=== PATIENT | female | born 1995 | race Caucasian/White ===

== ENCOUNTER 2019-03-12 08:00 | Observation (INO) ==
--- NOTE | 2019-03-12 09:21 | Emergency Department Note ---
Disposition Clinical Impression: Choledocholithiasis Disposition: Admitted As Inpatient Condition: Good Time of Disposition: 11:30 Abdominal Pain HPI - General Chief Complaint: ED Abdominal Pain Stated Complaint: "gallbladder" Time Seen by Provider: 03/12/19 09:02 Source: patient Mode of arrival: ambulatory Limitations: no limitations Nursing Notes Reviewed: Yes Vital Signs Reviewed: Yes - History of Present Illness Pt Subjective Complaint: abdominal pain Onset (ago): hour(s) Consistency: Worsening Location: epigastric Pain Scale: 8 Quality: stabbing, burning Radiation: chest, other (Right arm) Improves with: nothing Worsens with: eating, movement Context: history of similar episodes Associated symptoms: Reports: nausea, vomiting, diarrhea, chills Treatments prior to arrival: none - Related Data LMP (females 10-50): other (Patient estimates about 6 months) Home Medications Medication Instructions Recorded Confirmed No Known Home Drugs 03/12/19 03/12/19 Allergies Allergy/AdvReac Type Severity Reaction Status Date / Time No Known Allergies Allergy Verified 03/12/19 08:06 Review of Systems: As Per HPI Constitutional: Reports: chills Gastrointestinal: Reports: nausea, vomiting, diarrhea Genitourinary: Reports: as per HPI Abdominal Pain PMH - Past Medical History Medical history: Reports: no medical history Reports: recurrent abdominal pain Female Surgical History: Reports: no surgical history MANAGER CRITICAL CARE history: Reports: no MANAGER CRITICAL CARE history Psychiatric history: Reports: no psych history - Social History Smoking status: Current every day smoker Alcohol use: Reports: none Drug use: Reports: none Physical Exam - General Limitations: no limitations General appearance: alert, in no apparent distress - Head Head exam: normal inspection - Neck Neck exam: Present: normal inspection - Chest Chest inspection: Present: normal inspection - Respiratory Respiratory exam: Present: normal lung sounds bilaterally - Cardiovascular Cardiovascular exam: Present: regular rate, normal rhythm - Abdominal Exam Abdominal exam: Present: soft, tenderness, Valle's sign Abdominal tenderness: Present: RUQ, moderate Course Course Narrative: Ms. Belle is a 24 yo woman who came to the ED for evaluation of "gallbladder pain." She states the pain is like previous episodes, but the pain is worse (8/10). It radiates from the epigastrium to her chest and down her right arm. The pain woke her from sleep around 0230 this morning and has been accompanied by nausea, vomiting and diarrhea. She did not take any medications to relieve it. She denies history of heartburn. Eating foods such as pizza makes the pain recur. She said previous imaging has shown gallstones, but she has not yet followed up with a surgeon. No recent travel, long periods without moving, history of blood clots, sick contacts or other circumstances suggesting pulmonary embolism. Patient does smoke. She stopped getting the Depo-Provera shot in September and does not think she has had a menstrual period since. There is a possibility she could be , per patient. On PE, she has moderate tenderness to her RUQ and positive Valle's sign. Rest of exam WNL. Vital Signs Temperature 98 F 03/12/19 08:07 Pulse Rate 59 03/12/19 08:07 Respiratory Rate 20 03/12/19 08:07 Blood Pressure 132/71 03/12/19 08:07 O2 Sat by Pulse Oximetry 94 03/12/19 08:07 Temperature 98 F 03/12/19 08:07 Pulse Rate 59 03/12/19 08:07 Respiratory Rate 20 03/12/19 08:07 Blood Pressure 132/71 03/12/19 08:07 O2 Sat by Pulse Oximetry 94 03/12/19 08:07 Oxygen Delivery Oxygen Delivery Room Air Abdominal Pain - MDM Narrative Medical decision making narrative: EKG normal, ruling out FL. test negative. LFTs significant only for elevated AST at 98. WBC slightly elevated 12.5 with left shift, consistent with inflammation. UA negative. US of gallbladder and liver consistent with choledocholelithiasis. CBD dilated to 7.3mm with echogenic focus within duct. Patient received GI cocktail, which did not relieve symptoms; Zofran and 1 mg of IV dilaudid which did help. Surgery consulted and admitted patient to service. IV NS and Unasyn IV (1,000 mg, one dose) ordered per surgery. - Differential Diagnosis Differential Diagnosis: Likely: abdominal pain non-specific, acute appendicitis, gastroenteritis, other (Cholecystitis) - Medical Records Medical records reviewed: Yes I reviewed the patient's medical records. - Lab Data Lab results reviewed: Yes I reviewed the patient's lab results. Result diagrams: 03/12/19 09:31 03/12/19 09:31 Lab Results 03/12/19 03/12/19 03/12/19 Range/Units 09:20 09:31 09:31 WBC 12.5 H (4.3-11.1) K/mcL RBC 4.87 (3.82-4.97) M/mcL Hgb 14.1 (11.5-15.4) g/dL Hct 42.6 (35.3-44.9) % MCV 87.5 (83.0-100.0) fL MCH 29.0 (28.0-33.3) pg MCHC 33.1 (31.6-35.5) g/dL RDW 13.1 (11.5-14.5) % Plt Count 163 (140-400) K/mcL MPV 12.7 H (9.4-12.4) fL Immature Gran % 0.3 (0-4) % Seg Neutrophils % 83.2 % Lymphocytes % 10.8 % Monocytes % 5.1 % Eosinophils % 0.4 % Basophils % 0.2 % Neutrophils # 10.4 H (1.6-8.9) K/mcL Lymphocytes # 1.4 (0.6-4.6) K/mcL Monocytes # 0.6 (0.0-1.3) K/mcL Eosinophils # 0.1 (0.0-0.6) K/mcL Basophils # 0.0 (0.0-0.2) K/mcL Sodium 138 (136-145) mEq/L Potassium 4.2 (3.5-5.1) mEq/L Chloride 104 (98-107) mEq/L Carbon Dioxide 26 (23-29) mEq/L BUN 15 (6-20) mg/dL Creatinine 0.85 (0.60-1.20) mg/dL Est GFR ( Amer) > 60 (> 60) Est GFR (Non-Af Amer) > 60 (> 60) BUN/Creatinine Ratio 18 (6-26) Glucose 110 H (70-105) mg/dL Calculated Osmolality 287 (280-300) Calcium 9.3 (8.6-10.3) mg/dL Total Bilirubin 0.5 (0.3-1.0) mg/dL Direct Bilirubin 0.2 (0.0-0.2) mg/dL Indirect Bilirubin 0.3 (0.0-1.2) mg/dL AST 98 H (13-39) Units/L ALT 50 (7-52) Units/L Alkaline Phosphatase 61 (34-104) Units/L Troponin I < 0.03 (< 0.04) ng/mL Serum Total Protein 6.7 (6.4-8.9) g/dL Albumin 3.9 (3.5-5.7) g/dL Globulin 2.8 (2.4-3.5) g/dL Albumin/Globulin Ratio 1.4 (1.1-2.2) Serum , Qual (Negative) Urine Color Yellow (Yellow) Urine Clarity Clear (Clear) Urine pH 6.0 (5.0-8.0) pH Units Ur Specific [place] 1.028 H (1.010-1.025) Urine Protein Negative (Neg-Trace) mg/dL Urine Glucose (UA) Normal (Normal) mg/dL Urine Ketones Negative (Negative) mg/dL Urine Blood Negative (Negative) Urine Nitrite Negative (Negative) Urine Bilirubin Negative (Negative) Urine Urobilinogen Normal (Normal) mg/dL Ur Leukocyte Esterase Negative (Negative) Urine Microscopic RBC 0-3 (0-3) per hpf Ur Squamous Epith Cells Many H (None-Few) per lpf Urine Bacteria None Seen (None-Few) per hpf Hyaline Casts None Seen (None-Few) per lpf Ur Culture Indicated? NO (NO) 03/12/19 Range/Units 09:31 WBC (4.3-11.1) K/mcL RBC (3.82-4.97) M/mcL Hgb (11.5-15.4) g/dL Hct (35.3-44.9) % MCV (83.0-100.0) fL MCH (28.0-33.3) pg MCHC (31.6-35.5) g/dL RDW (11.5-14.5) % Plt Count (140-400) K/mcL MPV (9.4-12.4) fL Immature Gran % (0-4) % Seg Neutrophils % % Lymphocytes % % Monocytes % % Eosinophils % % Basophils % % Neutrophils # (1.6-8.9) K/mcL Lymphocytes # (0.6-4.6) K/mcL Monocytes # (0.0-1.3) K/mcL Eosinophils # (0.0-0.6) K/mcL Basophils # (0.0-0.2) K/mcL Sodium (136-145) mEq/L Potassium (3.5-5.1) mEq/L Chloride (98-107) mEq/L Carbon Dioxide (23-29) mEq/L BUN (6-20) mg/dL Creatinine (0.60-1.20) mg/dL Est GFR ( Amer) (> 60) Est GFR (Non-Af Amer) (> 60) BUN/Creatinine Ratio (6-26) Glucose (70-105) mg/dL Calculated Osmolality (280-300) Calcium (8.6-10.3) mg/dL Total Bilirubin (0.3-1.0) mg/dL Direct Bilirubin (0.0-0.2) mg/dL Indirect Bilirubin (0.0-1.2) mg/dL AST (13-39) Units/L ALT (7-52) Units/L Alkaline Phosphatase (34-104) Units/L Troponin I (< 0.04) ng/mL Serum Total Protein (6.4-8.9) g/dL Albumin (3.5-5.7) g/dL Globulin (2.4-3.5) g/dL Albumin/Globulin Ratio (1.1-2.2) Serum , Qual Negative (Negative) Urine Color (Yellow) Urine Clarity (Clear) Urine pH (5.0-8.0) pH Units Ur Specific [place] (1.010-1.025) Urine Protein (Neg-Trace) mg/dL Urine Glucose (UA) (Normal) mg/dL Urine Ketones (Negative) mg/dL Urine Blood (Negative) Urine Nitrite (Negative) Urine Bilirubin (Negative) Urine Urobilinogen (Normal) mg/dL Ur Leukocyte Esterase (Negative) Urine Microscopic RBC (0-3) per hpf Ur Squamous Epith Cells (None-Few) per lpf Urine Bacteria (None-Few) per hpf Hyaline Casts (None-Few) per lpf Ur Culture Indicated? (NO) - Radiology Data Radiology results reviewed: Yes I reviewed the patient's radiology results. Gallbladder Ultrasound 03/12/19 10:09 IMPRESSION: 1. Cholelithiasis with dilated common bile duct likely secondary to choledocholithiasis. D/ / Higinio Jorge MD / Higinio Jorge MD Interpreting Provider: Higinio Jorge MD - EKG Data EKG attestation: Yes I reviewed and interpreted this EKG. Interpretation: normal EKG Attestation Statement - Attestation Attestation: Dr. Collier note: Pt was seen in conjunction with emergency medicine Resident Dr Arely Shukla; Please see her charting for complete documentation. Assessment [id number] time with the patient and I agree with patient's treatment and disposition. Midepigastric and right upper quadrant pain since 2 AM and persistent with naus ea no vomiting or diarrhea. History of known gallstones. Patient's onset and disposition of pain reported by patient. Same as her prior gallbladder issues. No fever. No lower bowel pain. No clear signs of obstruction or pancreatitis by blood work. Common bile duct stones suspected on imaging with a dilated common bile duct an opacity noted. Patient was accepted to the general surgeon Dr. Massiel Jackson. Stable with pain controlled prior to admission. No fever.
[2019-03-12 09:43] LABS: Bilirubin,Urine Negative (Negative); Blood,Urine Negative (Negative); Color,Urine Yellow (Yellow); Glucose,Urine (UA) Normal (Normal); Ketones,Urine Negative (Negative); Leukocyte Esterase,Urine Negative (Negative); Nitrite,Urine Negative (Negative); Protein,Urine Negative (Neg-Trace); Specific Gravity,Urine 1.028 (1.010-1.025); Urobilinogen,Urine Normal (Normal)
[2019-03-12 09:47] LABS: Bacteria,Urine None Seen per hpf (None-Few); Hyaline Casts,Urine None Seen per lpf (None-Few); RBC,Urine 0-3 per hpf (0-3); Squamous Epithelial Cell,Urine Many per lpf (None-Few)
[2019-03-12 09:49] LABS: Basophils % 0.2 %; Eosinophils # 0.1 K/mcL (0.0-0.6); Eosinophils % 0.4 %; Hematocrit 42.6 % (35.3-44.9); Hemoglobin 14.1 g/dL (11.5-15.4); Immature Granulocytes % 0.3 % (0-4); Lymphocytes # 1.4 K/mcL (0.6-4.6); Lymphocytes % 10.8 %; Mean Corpuscular HGB Conc 33.1 g/dL (31.6-35.5); Mean Corpuscular Volume 87.5 fL (83.0-100.0); Mean Platelet Volume 12.7 fL (9.4-12.4); Monocytes # 0.6 K/mcL (0.0-1.3); Monocytes % 5.1 %; Neutrophils # 10.4 K/mcL (1.6-8.9); Platelet Count 163 K/mcL (140-400); Red Blood Count 4.87 M/mcL (3.82-4.97); Red Cell Distribution Width 13.1 % (11.5-14.5); Segmented Neutrophils % 83.2 %; White Blood Count 12.5 K/mcL (4.3-11.1)
[2019-03-12 09:50] LABS: Clarity,Urine Clear (Clear)
[2019-03-12] MEDS ORDERED: GI Cocktail 40 ML EACH PO ONE (10:03)
[2019-03-12 10:05] LABS: Alanine Aminotransferase 50 Units/L (7-52); Albumin 3.9 g/dL (3.5-5.7); Albumin/Globulin Ratio 1.4 (1.1-2.2); Alkaline Phosphatase 61 Units/L (34-104); Aspartate Amino Transferase 98 Units/L (13-39); BUN/Creatinine Ratio 18 (6-26); Bilirubin,Direct 0.2 mg/dL (0.0-0.2); Bilirubin,Indirect 0.3 mg/dL (0.0-1.2); Bilirubin,Total 0.5 mg/dL (0.3-1.0); Blood Urea Nitrogen 15 mg/dL (6-20); Calcium 9.3 mg/dL (8.6-10.3); Carbon Dioxide 26 mEq/L (23-29); Chloride 104 mEq/L (98-107); Globulin 2.8 g/dL (2.4-3.5); Glucose 110 mg/dL (70-105); Osmolality,Calculated 287 (280-300); Potassium 4.2 mEq/L (3.5-5.1); Sodium 138 mEq/L (136-145); Total Protein 6.7 g/dL (6.4-8.9); Troponin I < 0.03 ng/mL (< 0.04); eGFR For African Americans > 60 (> 60); eGFR For Non-African Americans > 60 (> 60)
[2019-03-12] MEDS ORDERED: Ondansetron Oral Soln 2 MG/2.5 ML ORAL.SYG PO ONE (10:07)
[2019-03-12] MEDS ORDERED: *HR* HYDROmorphone (PF) 1 MG/ML SYRINGE IVP ONE (10:15)
[2019-03-12] MEDS ORDERED: Ampicillin/Sulbactam 1,500 MG in 0.9 % Sodium Chloride Mini Bag 100 ML IVPB ONE (11:37)
[2019-03-12] MEDS: 0.9 % Sodium Chloride 1,000 ML IVC SCH ×4 (11:54→23:53)
[2019-03-12] MEDS ORDERED: Ondansetron 4 MG/2 ML VIAL IVP PRN ×2 (15:49→23:12)
--- NOTE | 2019-03-12 15:59 | Acute Care Surgery H&P ---
Date of Encounter: 03/12/19 Time of Encounter: 14:00 Assessment and Plan (1) Symptomatic cholelithiasis Current Visit: Yes Status: Acute The assessment and plan as outlined above was discussed with the patient and/or family members who expressed understanding and agreement. All questions were answered. Pt diagnosis of symptomatic cholelithiasis with dilated CBD is discussed. Laparoscopic Cholecystectomy with IOC is recommended. Procedure for the surgery, risks and benefits are discussed in detail. Possible known complications for Laparoscopic Cholecystectomy are bleeding, infection, bile duct injury, bile leak, small intestine or stomach injury, stroke, DVT/PE, AL or . Pt understands these risks, which in this case are . Pt wishes to proceed with surgery as soon as possible. Informed consent is obtained. Pt condition is s table. Surgery is scheduled. (2) Dilated cbd, acquired Current Visit: Yes Status: Acute Bilirubin levels are wnl History of Present Illness Chief complaint: RUQ abd pain HPI: This 24 y/o female pt presents to [facility] c/o severe RUQ abdominal pain. Pt reports pain is severe and unrelenting. Pt c/o epigastric pain as well. Pt reports pain radiates into back. Pt reports intractable nausea and vomiting. Pt denies changes in BM. Pt denies CP or SOB. Pt denies fever. Past Med Surg Social Fam HX - Past Medical History Medical history: no medical history Additional medical history: HPV Psychiatric history: no psych history - Social History Smoking Status: Current every day smoker Smokeless Tobacco Status: No Alcohol use: none Drug use: none Medications and Allergies No Known Home Drugs 03/12/19 [History] Allergy/AdvReac Type Severity Reaction Status Date / Time No Known Allergies Allergy Verified 03/12/19 08:06 Review of Systems All systems PM: The remainder of the systems were reviewed and are negative - Constitutional as per HPI, no anorexia, no chills, no fatigue, no fever(s), no night sweats, no weight loss - EENT Nose, mouth and throat: no dizziness, no dry mouth, no nasal congestion, no nasal discharge, no sinus pain, no sinus pressure, no sore throat - Cardiovascular no chest pain, no diaphoresis, no dyspnea, no edema - Respiratory no cough, no dyspnea, no wheezing - Gastrointestinal abdominal pain, belching, bloating, constipation, nausea, vomiting, no diarrhea - Genitourinary Genitourinary: no dysuria, no flank pain, no urinary frequency - Musculoskeletal back pain, no joint swelling, no limited range of motion, no neck pain - Integumentary no dry skin, no pruritus, no rash, no wounds, no jaundice - Neurological no confusion, no dizziness, no focal weakness, no headache(s), no weakness - Psychiatric no anxiety, no depression - Endocrine no fatigue - Hematologic/Lymphatic no easy bleeding, no easy bruising General Surgery Exam Initial Vital Signs Temp Pulse Resp BP Pulse Ox 98 F 59 20 132/71 94 03/12/19 08:07 03/12/19 08:07 03/12/19 08:07 03/12/19 08:07 03/12/19 08:07 - General physical appearance well developed, well nourished, no distress, moderate pain. negative: jaundice - Eyes PERRL, normal ocular movement. negative: icteric - ENT no congestion, dry mucosa. negative: nasal discharge - Neck no masses, trachea midline, no lymphadectomy, no venous distension - Respiratory normal respiratory effort, clear to auscultation - Cardiovascular Cardiovascular exam: Present: RRR. Absent: murmurs, JVD - Abdomen Abdomen general surgery: Present: bowel sounds present, soft, distended, tender Abdominal Tenderness: Present: RUQ - Genitourinary Present: normal external genitalia - Integumentary Integumentary general surgery: Present: warm and dry - Neurologic Present: CN 2-12 grossly intact, normal coordination - Musculoskeletal Present: normal gait, normal posture - Psychiatric Psychiatric general surgery: Present: A&Ox3, appropriate Results - Labs 03/12/19 09:31 03/12/19 09:31 Abnormal lab results WBC 12.5 K/mcL (4.3-11.1) H 03/12/19 09:31 MPV 12.7 fL (9.4-12.4) H 03/12/19 09:31 Neutrophils # 10.4 K/mcL (1.6-8.9) H 03/12/19 09:31 Glucose 110 mg/dL (70-105) H 03/12/19 09:31 AST 98 Units/L (13-39) H 03/12/19 09:31 Ur Specific [place] 1.028 (1.010-1.025) H 03/12/19 09:20 Ur Squamous Epith Cells Many per lpf (None-Few) H 03/12/19 09:20 Diabetes panel 03/12/19 Range/Units 09:31 Sodium 138 (136-145) mEq/L Potassium 4.2 (3.5-5.1) mEq/L Chloride 104 (98-107) mEq/L Carbon Dioxide 26 (23-29) mEq/L BUN 15 (6-20) mg/dL Creatinine 0.85 (0.60-1.20) mg/dL Glucose 110 H (70-105) mg/dL Calcium 9.3 (8.6-10.3) mg/dL AST 98 H (13-39) Units/L ALT 50 (7-52) Units/L Alkaline Phosphatase 61 (34-104) Units/L Albumin 3.9 (3.5-5.7) g/dL Calcium panel 03/12/19 Range/Units 09:31 Calcium 9.3 (8.6-10.3) mg/dL Albumin 3.9 (3.5-5.7) g/dL Pituitary panel 03/12/19 Range/Units 09:31 Sodium 138 (136-145) mEq/L Potassium 4.2 (3.5-5.1) mEq/L Chloride 104 (98-107) mEq/L Carbon Dioxide 26 (23-29) mEq/L BUN 15 (6-20) mg/dL Creatinine 0.85 (0.60-1.20) mg/dL Glucose 110 H (70-105) mg/dL Calcium 9.3 (8.6-10.3) mg/dL Adrenal panel 03/12/19 Range/Units 09:31 Sodium 138 (136-145) mEq/L Potassium 4.2 (3.5-5.1) mEq/L Chloride 104 (98-107) mEq/L Carbon Dioxide 26 (23-29) mEq/L BUN 15 (6-20) mg/dL Creatinine 0.85 (0.60-1.20) mg/dL Glucose 110 H (70-105) mg/dL Calcium 9.3 (8.6-10.3) mg/dL Total Bilirubin 0.5 (0.3-1.0) mg/dL AST 98 H (13-39) Units/L ALT 50 (7-52) Units/L Alkaline Phosphatase 61 (34-104) Units/L Albumin 3.9 (3.5-5.7) g/dL All other labs normal. - Imaging US - abdomen: image reviewed (+cholelithiasis with dilated CBD) - VTE Reasons for not Prescribing Prophylaxis: Treatment not Indicated - Low risk for VTE
[2019-03-12] MEDS ORDERED: 0.9 % Sodium Chloride 1,000 ML IVC SCH (16:00)
[2019-03-12] MEDS ORDERED: Ampicillin/Sulbactam 3,000 MG in 0.9 % Sodium Chloride Mini Bag 100 ML IVPB SCH (18:00)
--- NOTE | 2019-03-12 19:09 | Anesthesia Evaluation PreOp ---
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 HX Other Medical History: Denies Any Significant HX, Other (intractable N/V associated w/RUQ pain) Anesthesia History: Past Anesthesia (NO prior GA), MH (NO FamHx of MH) : No Test: Negative Alcohol Use: none Drug use: marijuana Medications and Allergies No Known Home Drugs 03/12/19 [History] Allergy/AdvReac Type Severity Reaction Status Date / Time No Known Allergies Allergy Verified 03/12/19 08:06 - Meds/Allergy Pre-op Review Medications Reviewed: Yes Allergies Reviewed: Yes Beta Blockers on Current Med List: No Anesthesia Results - Labs 03/12/19 09:31 03/12/19 09:31 Impressions Gallbladder Ultrasound 03/12/19 10:09 IMPRESSION: 1. Cholelithiasis with dilated common bile duct likely secondary to choledocholithiasis. D/ / Higinio Jorge MD / Higinio Jorge MD Interpreting Provider: Higinio Jorge MD Laboratory Tests 03/12/19 09:31 Serum , Qual Negative - Imaging EKG: report reviewed (80bpm - Sinus rhythm Electronically Signed On 11-30-2018 19:06:54 EDT by Luca Rogers) Anesthesia Exam Vital Signs Temp Pulse Resp BP Pulse Ox 03/12/19 16:19 98.1 F 14 14 109/63 96 03/12/19 15:53 51 16 126/71 97 03/12/19 12:29 67 16 113/57 97 03/12/19 08:07 98 F 59 20 132/71 94 Intake and Output 03/12/19 03/12/19 03/12/19 07:59 15:59 23:59 Intake Total 200 / 200 Balance 200 / 200 Intake: IV Fluids 200 / 200 Unasyn 1,500 MG In 0.9 % Sodium 100 / 100 Chloride (Mini-Bag +) 100 ML @ 200 mls/hr IVPB ONCE ONE Rx#: [id number] Unasyn 3,000 MG In 0.9 % Sodium 100 / 100 Chloride (Mini-Bag +) 100 ML @ 200 mls/hr IVPB Q6HR [facility] Rx#: [id number] Oral 0 / 0 Other: Weight 113.398 kg Patient Weight 03/12/19 23:59 Weight 113.398 kg Height: 5'10" Weight: 250# BMI = 36 NPO (# of Hours): MNoc Pain Scale Used: Numeric (1 - 10) - HEENT Pupil (Motor): Pupils equal, EOMI Mallampati: III Teeth: Normal Oral Opening: Greater than 3 - 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 Alan De La Cruz MD
[2019-03-12] MEDS ORDERED: Scopolamine Patch 1.5 MG PATCH.TD72 ONE (19:21)
[2019-03-12] MEDS ORDERED: Famotidine 20 MG/2 ML VIAL ONE (19:22)
[2019-03-12] MEDS ORDERED: Acetaminophen IV 1,000 MG/100 ML INFUS..BTL ONE (19:23)
[2019-03-12] MEDS ORDERED: *HR* Succinylcholine 200 MG/10 ML VIAL IVP ONE (19:43)
[2019-03-12] MEDS ORDERED: Lidocaine -MPF 2% 2 ML VIAL ONE (19:43)
[2019-03-12] MEDS ORDERED: *HR* Rocuronium Bromide 50 MG/5 ML VIAL ONE (19:43)
[2019-03-12] MEDS ORDERED: Lidocaine -MPF 4% 5 ML AMPUL ONE (19:43)
[2019-03-12] MEDS ORDERED: *HR* FentaNYL (PF) 100 MCG/2 ML VIAL ONE ×2 (19:44→21:12)
[2019-03-12] MEDS ORDERED: *HR* Midazolam HCl 2 MG/2 ML VIAL ONE (19:45)
[2019-03-12] MEDS ORDERED: *HR* Propofol 200 MG/20 ML VIAL IVP ONE (19:46)
[2019-03-12] MEDS ORDERED: Isovue-300 50 ML VIAL ONE (20:04)
[2019-03-12] MEDS ORDERED: Dexamethasone 4 MG/ML VIAL ONE ×2 (20:42→22:04)
[2019-03-12] MEDS ORDERED: Ondansetron 4 MG/2 ML VIAL ONE ×2 (20:42→22:04)
[2019-03-12] MEDS ORDERED: Ketorolac 30 MG/ML VIAL ONE (21:06)
[2019-03-12] MEDS ORDERED: *HR* Magnesium Sulfate 1 GM/2 ML VIAL ONE ×2 (21:42→21:43)
[2019-03-12] MEDS ORDERED: Neostigmine Methylsulfate 3 MG/3 ML SYRINGE ONE (21:51)
--- NOTE | 2019-03-12 22:58 | Operative Note ---
Date of procedure: 03/12/19 Pre-op diagnosis: Acute cholecystitis with cholelithiasis and dilated common bile duct Post-op diagnosis: same (With choledocholithiasis) Procedure: Laparoscopic cholecystectomy with intraoperative cholangiogram Complications: None Anesthesia: GETA Surgeon: Lissette Jackson Was there an library clerical assistant present: No Estimated blood loss (cc): 25 Specimen: Gallbladder Condition: stable Disposition: PACU Procedure in Detail: This 24 year-old female was taken to the operating room and placed in the supine position. The anterior abdominal wall is prepped and draped in the usual sterile fashion. A 1-2 cm curvilinear incision is made in the infraumbilical area and subcutaneous tissue was dissected down to anterior rectus fascia. Fascia is grasped with a Madhuri clamp, stay sutures were placed in the fascia is divided. Posterior rectus fascia and peritoneum were elevated and divided in the same manner. A Carey port is inserted. Exploration of the intraabdominal cavity reveals an abnormal gallbladder but, normal appearing liver. Under direct visualization after the injection of 0.5% Marcaine the three right subcostal 5 mm ports were inserted. The patient is placed in reverse Trendelenburg position and rotated to the left. The gallbladder is grasped and retracted in cephalad direction. It is also grasped and retracted in the lateral direction. The cystic duct was carefully identified circumferentially dissected and clipped near the neck of the gallbladder. A cholecystodochotomy is made. A cholangiocatheter is placed in the cystic duct. A cholangiogram is obtained. There is easy filling of the CBD, common hepatic duct and hepatic radicals. The duct are clearly dilated. No filling of the duodenum is appreciated. When the cholangiogram is completed, the catheter is removed. The cystic duct is doubly clipped and divided between clips. The cystic artery is also doubly clipped and divided between clips. The gallbladder is dissected off the liver bed using electrocautery. Hemostasis was perfected using electrocautery. The gallbladder is removed from the intra-abdominal cavity using an Endo Catch bag. Copious irrigation is carried out in the intra-abdominal cavity, Barrientos's pouch and the gallbladder fossa. The pneumoperitoneum was allowed to escape under direct visualization. The ports were removed also under direct visualization. The fascia at the infraumbilical incision is closed using 0 Vicryl sutures. All skin incisions are closed using 4-0 Monocryl subcuticular stitches. Steri- Strips are placed. Sterile dressing is placed. Patient tolerated procedure well was taken to the PACU in good condition.
[2019-03-13] MEDS: Ampicillin/Sulbactam 3,000 MG in 0.9 % Sodium Chloride Mini Bag 100 ML IVPB SCH ×4 (00:15→20:27)
--- NOTE | 2019-03-13 03:03 | Anesthesia Evaluation Post Op ---
Date of Encounter: 03/13/19 Time of Encounter: 23:10 - Vital Signs Vital Signs: Vital Signs Temp Pulse Resp BP Pulse Ox 03/13/19 01:08 97.8 F 75 16 117/65 93 03/12/19 23:57 97.8 F 80 18 126/85 98 03/12/19 23:27 96.7 F L 78 16 117/76 96 03/12/19 22:56 97.6 F 17 126/83 97 03/12/19 22:47 97.2 F L 67 18 129/78 96 03/12/19 22:37 72 18 132/80 97 03/12/19 22:27 85 14 131/81 93 03/12/19 22:17 97.8 F 91 14 133/88 100 03/12/19 19:15 98.1 F 73 16 122/75 97 03/12/19 16:19 98.1 F 14 14 109/63 96 03/12/19 15:53 51 16 126/71 97 03/12/19 12:29 67 16 113/57 97 03/12/19 08:07 98 F 59 20 132/71 94 Intake and Output 03/12/19 03/12/19 03/13/19 15:59 23:59 07:59 Intake Total 1200 / 1200 Output Total 25 / Balance 1175 / 1175 Intake: IV Fluids 1200 / 1200 0.9 % Sodium Chloride 1,000 ML 1000 / 1000 @ 125 mls/hr IVC .Q8H [facility] Rx#: [id number] Unasyn 1,500 MG In 0.9 % Sodium 100 / 100 Chloride (Mini-Bag +) 100 ML @ 200 mls/hr IVPB ONCE ONE Rx#: [id number] Unasyn 3,000 MG In 0.9 % Sodium 100 / 100 Chloride (Mini-Bag +) 100 ML @ 200 mls/hr IVPB Q6HR [facility] Rx#: [id number] Oral 0 / 0 Output: Estimated Blood Loss 25 Other: # Voids 1 Weight 113.398 kg - Lungs Lungs: Clear Ascult./Percussion - Airway Airway: Non-obstructed - Cardiovascular Regular Rate, Baseline Rhythm - Mental Status Mental Status: Alert & Oriented, Answers Appropriately, Asleep with brisk response to light stimulation - Nausea Vomiting Nausea Vomiting: Not Present - Hydration Hydration: Ice chips, Has not voided - Discharge PostOp Status: Transfer Patient to floor Anes Supervising Prov Stmt: Pt seen/evaluated, VSS and has met criteria for discharge to floor. - MD Jono
[2019-03-13 04:05] LABS: Basophils % 0.1 %; Hematocrit 45.4 % (35.3-44.9); Hemoglobin 15.1 g/dL (11.5-15.4); Immature Granulocytes % 0.5 % (0-4); Lymphocytes # 0.4 K/mcL (0.6-4.6); Lymphocytes % 3.7 %; Mean Corpuscular HGB Conc 33.3 g/dL (31.6-35.5); Mean Corpuscular Hemoglobin 28.7 pg (28.0-33.3); Mean Corpuscular Volume 86.3 fL (83.0-100.0); Mean Platelet Volume 12.6 fL (9.4-12.4); Monocytes # 0.1 K/mcL (0.0-1.3); Monocytes % 1.1 %; Neutrophils # 9.3 K/mcL (1.6-8.9); Platelet Count 157 K/mcL (140-400); Red Blood Count 5.26 M/mcL (3.82-4.97); Red Cell Distribution Width 13.1 % (11.5-14.5); Segmented Neutrophils % 94.6 %; White Blood Count 9.8 K/mcL (4.3-11.1)
[2019-03-13 04:26] LABS: Alanine Aminotransferase 466 Units/L (7-52); Albumin 3.9 g/dL (3.5-5.7); Albumin/Globulin Ratio 1.3 (1.1-2.2); Alkaline Phosphatase 93 Units/L (34-104); Aspartate Amino Transferase 411 Units/L (13-39); BUN/Creatinine Ratio 11 (6-26); Bilirubin,Total 3.2 mg/dL (0.3-1.0); Blood Urea Nitrogen 9 mg/dL (6-20); Calcium 9.4 mg/dL (8.6-10.3); Carbon Dioxide 26 mEq/L (23-29); Chloride 105 mEq/L (98-107); Glucose 131 mg/dL (70-105); Osmolality,Calculated 286 (280-300); Potassium 4.6 mEq/L (3.5-5.1); Sodium 138 mEq/L (136-145); Total Protein 6.9 g/dL (6.4-8.9); eGFR For African Americans > 60 (> 60); eGFR For Non-African Americans > 60 (> 60)
[2019-03-13] MEDS: 0.9 % Sodium Chloride 1,000 ML IVC SCH ×4 (10:09→20:09)
[2019-03-13] MEDS ORDERED: 0.9 % Sodium Chloride Mini Bag 100 ML ONE (11:17)
--- NOTE | 2019-03-13 12:26 | Anesthesia Evaluation PreOp ---
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: Denies Any Significant HX Other Medical History: Denies Any Significant HX, Other (OBESE) Anesthesia History: No Prior Anesthetic Complications, Past Anesthesia () : No Test: Negative (03/12/19) Alcohol Use: none Drug use: marijuana Medications and Allergies No Known Home Drugs 03/12/19 [History] Allergy/AdvReac Type Severity Reaction Status Date / Time No Known Allergies Allergy Verified 03/13/19 15:31 - Meds/Allergy Pre-op Review Medications Reviewed: Yes Allergies Reviewed: Yes Beta Blockers on Current Med List: No Anesthesia Results - Labs 03/13/19 03:52 03/13/19 03:52 Anesthesia Exam Vital Signs/O2 Sat, Most Current Temp Pulse Resp BP Pulse Ox 98.4 F 51 16 130/70 96 03/13/19 11:47 03/13/19 11:47 03/13/19 11:47 03/13/19 11:47 03/13/19 11:47 NPO (# of Hours): > 8 hrs Pain Scale: 0 Pain Scale Used: Numeric (1 - 10) - HEENT Pupil (Motor): Pupils equal, EOMI Mallampati: III Teeth: Normal Oral Opening: Greater than 3 - [employer]WARD [employer]ICER LOC: Oriented [employer]ICER Motor: Normal RUE, Normal LUE, Normal RLE, Normal LLE, Normal Face [employer]ER Sensory: Normal: RUE, LUE, RLE, LLE, Face - Cardiac Rhythm: Regular Murmur: None JVD: No Carotid Bruit: No - Pulmonary Breath Sounds: bilateral Clear Respiratory Effort: Symmetrical Anesthesia Assess/Plan ASA Score: 3 (Obese, smoker) Level of consciousness: Anxious Anesthetic Plan: General Autologous Blood: Yes Monitoring Plan: Standard Monitors Recovery Plan: PACU
--- NOTE | 2019-03-13 13:16 | Gastroenterology Consult Note ---
Date of Encounter: 03/13/19 Time of Encounter: 12:45 - Assessment and plan (1) Choledocholithiasis Current Visit: Yes Status: Acute Assessment and plan: Patient with elevated LFTs and IOC suspicious for CBD obstruction due to stone. Patient will have an ERCP done today complications including perforation pancreatitis and bleeding explained to with patient (2) Symptomatic cholelithiasis Current Visit: Yes Status: Acute Assessment and plan: status post GB surgery - Time Spent With Patient Total time spent is greater than 50% in coordination of care (as documented) at patient's floor/unit and/or counseling patient: GI History of Present Illness - Data of Consult Requesting Physician: Lissette Jackson - Consult Narrative Reason for consult: Elevated LFTs with the CBD stones suspected History of present illness: Ms. Belle is a 24 year old female admitted because of symptomatic gallbladder disease. Yesterday morning she had sudden onset of abdominal pain and came to the ER had ultrasound done which showed dilated CBD with possible acute cholecystitis and also possible CBD stone ended up getting GB surgery and her IOC done which is abnormal showing CBD obstruction. Patient seen at the bedside now she is complaining of pain in her right upper quadrant and also in the right shoulder. Denies any fever or chills Past Med Surg Social Fam HX - Past Medical History Medical history: no medical history Additional medical history: HPV Psychiatric history: no psych history - Past Surgical History Surgical History: no surgical history - Social History Smoking Status: Current every day smoker Smokeless Tobacco Status: No Alcohol use: none Drug use: marijuana Review of Systems: GI: as per [facility] [facility]: denies fever, has some chills EYES: denies yellow discoloration CARDIO: Right upper chest/shoulder area chest pain, RESP: No Shortness of breath with exertion : denies change in color of urine NEURO: denies any weakness HEME: Denies any bruising MS: denies joint pain, joint swelling or back pain. DERM: denies rash or itching PSYCH: Denies history of anxiety or depression - Constitutional Vitals: Temp Pulse Resp BP Pulse Ox 98.4 F 51 16 130/70 96 03/13/19 11:47 03/13/19 11:47 03/13/19 11:47 03/13/19 11:47 03/13/19 11:47 Exam: CONSTITUTIONAL:alert, in distress because of her abdominal/right shoulder area pain.HEAD:normocephalic.EYES:no jaundice.NECK:no obvious swelling.HEART:regular rate and rhythm, no murmurs.LUNGS:bilateral good air entry.ABDOMEN:non distended, soft, and upper abdominal tander, no masses pulpable, no organomegaly.Has surgical incision from recent gallbladder surgery. RECTAL EXAM:Deferred.EXTREMITIES:no clubbing, cyanosis or edema.SKIN:no stigmata of chronic liver disease.NEUROLOGIC:no obvious focal defect. Results - Labs CBC & Chem 7: 03/13/19 03:52 03/13/19 03:52 Labs: Last Result 03/13/19 03:52 Calcium 9.4 Entire Visit 03/13/19 03/13/19 03:52 03:52 Hgb 15.1 Hct 45.4 H Total Bilirubin 3.2 H AST 411 H ALT 466 H - Impressions Impressions Cholangiogram,Operative 03/12/19 21:25 IMPRESSION: Contrast is not visualized in the duodenum. No obvious distal common bile duct stone is appreciated. A stenosis of the common bile duct or obstruction cannot be entirely excluded. Contrast near the cystic duct and along the edge of the liver. This is concerning for possible leak. D/ / 03/12/2019 22:06:54 Chey Avendaño MD / lorena Interpreting Provider: Chey Avendaño MD Consult Discharge Plan - Plan Instructions: Laparoscopic Cholecystectomy (DC) Additional Instructions: General Surgical Discharge Instructions 1. No pushing, pulling, or lifting greater than 15 lbs for 2 weeks. 2. You may shower beginning today, but no tub baths, soaking, or swimming for 2 weeks. 3. You may resume driving when you are off narcotics and are safe to react in a car. 4. Take ibuprofen every 8 hours for discomfort. If this does not relieve discomfort, you may take the as needed Percocet. Take narcotics as directed. Do not take more narcotics then directed and do not share your narcotics with any other person. Do not drink alcohol while on narcotics. 5. Take stool softeners (Colace) or a water based laxative (Miralax) while taking narcotics. You may hold for loose stools. 6. Report any fevers greater than 100.5F, increase abdominal discomfort, drainage that looks like pus, increased redness or pain at the surgical site, or any vomiting. 7. Report any pain in the calves, shortness of breath, or rapid heartbeat. 8. Follow-up in the office as directed. 9. If you were prescribed antibiotics, do not stop them without talking to your provider. Referrals: Cristhian An MD [Partnered Physician] - 04/06/19 8:30 am NONE,PCP [Primary Care Provider] -
[2019-03-13] MEDS ORDERED: *HR* Propofol 200 MG/20 ML VIAL IVP ONE (17:40)
[2019-03-13] MEDS ORDERED: *HR* FentaNYL (PF) 100 MCG/2 ML VIAL ONE ×3 (17:40→18:35)
[2019-03-13] MEDS ORDERED: Dexamethasone 4 MG/ML VIAL ONE (17:49)
[2019-03-13] MEDS ORDERED: Ondansetron 4 MG/2 ML VIAL ONE (17:49)
[2019-03-13] MEDS ORDERED: Lidocaine -MPF 2% 2 ML VIAL ONE (17:49)
[2019-03-13] MEDS ORDERED: *HR* Rocuronium Bromide 50 MG/5 ML VIAL ONE (17:49)
[2019-03-13] MEDS ORDERED: *HR* Succinylcholine 200 MG/10 ML VIAL IVP ONE (17:49)
[2019-03-13] MEDS ORDERED: *HR* Midazolam HCl 2 MG/2 ML VIAL ONE (18:20)
[2019-03-13] MEDS ORDERED: Indomethacin 50 MG SUPP.RECT RC ONE (18:49)
[2019-03-13] MEDS ORDERED: Acetaminophen IV 1,000 MG/100 ML INFUS..BTL ONE (19:04)
--- NOTE | 2019-03-13 19:22 | Anesthesia Evaluation Post Op ---
Date of Encounter: 03/13/19 Time of Encounter: 19:30 - Vital Signs Vital Signs: Vital Signs/O2 Sat/Glucose, Most Current Temp Pulse Resp BP Pulse Ox 03/13/19 19:15 49 15 133/69 97 03/13/19 19:05 98.8 F 64 12 137/77 97 03/13/19 16:15 98.2 F 52 17 137/74 97 - Lungs Lungs: Clear Ascult./Percussion - Airway Airway: Non-obstructed - Cardiovascular Regular Rate - Mental Status Mental Status: Alert & Oriented, Answers Appropriately - Pain Pain Scale: 0 - Nausea Vomiting Nausea Vomiting: Not Present - Hydration Hydration: Ice chips, Has not voided - Discharge PostOp Status: Transfer Patient to floor
[2019-03-13] MEDS: Nicotine 14 MG PATCH.TD24 TD SCH (20:26)
[2019-03-13] MEDS: *HR* OxyCODONE/APAP 5/325 TABLET PO PRN (21:44)
--- NOTE | 2019-03-13 21:52 | AcuteCareSurgery Progress Note ---
Date of Encounter: 03/13/19 Time of Encounter: 16:00 - Assessment and Plan (1) Symptomatic cholelithiasis Current Visit: Yes Status: Acute POD#1 lap drew. Leukocytosis resolved (2) Dilated cbd, acquired Current Visit: Yes Status: Acute (3) Choledocholithiasis Current Visit: Yes Status: Acute IOC +for distal CBD obsruction. Tbili elevated to 3.2. Dr. Dhaliwal consult appreciated. Pt to ERCP today. Subjective Patient reports: still having pain, tolerating liquids well, flatus, afebrile Objective Vital Signs - Last 8 Hours Temp Pulse Resp BP Pulse Ox 03/13/19 20:30 45 16 131/64 98 03/13/19 19:55 97.5 F L 54 16 133/57 97 03/13/19 19:33 98.2 F 51 14 128/75 97 03/13/19 19:25 52 16 129/86 97 03/13/19 19:15 49 15 133/69 97 03/13/19 19:05 98.8 F 64 12 137/77 97 03/13/19 16:15 98.2 F 52 17 137/74 97 Intake and Output 03/13/19 03/13/19 03/13/19 07:59 15:59 23:59 Intake Total 1200 / 1300 100 / 1300 Balance 1200 / 1300 100 / 1300 Intake: IV Fluids 1200 / 1300 100 / 1300 0.9 % Sodium Chloride 1,000 ML 1000 / 1000 @ 125 mls/hr IVC .Q8H SAUL Rx#: [id number] Unasyn 3,000 MG In 0.9 % Sodium 200 / 300 100 / 300 Chloride (Mini-Bag +) 100 ML @ 200 mls/hr IVPB Q6HR SAUL Rx#: [id number] Other: # Voids 1 1 - General physical appearance no distress, moderate pain, jaundice - Eyes PERRL, normal ocular movement - ENT normal mucosa, no congestion - Neck Neck exam: trachea midline - Respiratory normal respiratory effort, clear to auscultation - Abdomen Abdomen: Present: bowel sounds present, tender - Incision Incision: Present: clean and dry, intact - Neurologic CN 2-12 grossly intact, normal coordination - Musculoskeletal normal posture - Psychiatric oriented to time, oriented to person, oriented to place - Labs 03/13/19 03:52 03/13/19 03:52 Diabetes panel 03/13/19 Range/Units 03:52 Sodium 138 (136-145) mEq/L Potassium 4.6 (3.5-5.1) mEq/L Chloride 105 (98-107) mEq/L Carbon Dioxide 26 (23-29) mEq/L BUN 9 (6-20) mg/dL Creatinine 0.82 (0.60-1.20) mg/dL Glucose 131 H (70-105) mg/dL Calcium 9.4 (8.6-10.3) mg/dL AST 411 H (13-39) Units/L ALT 466 H (7-52) Units/L Alkaline Phosphatase 93 (34-104) Units/L Albumin 3.9 (3.5-5.7) g/dL Calcium panel 03/13/19 Range/Units 03:52 Calcium 9.4 (8.6-10.3) mg/dL Albumin 3.9 (3.5-5.7) g/dL Pituitary panel 03/13/19 Range/Units 03:52 Sodium 138 (136-145) mEq/L Potassium 4.6 (3.5-5.1) mEq/L Chloride 105 (98-107) mEq/L Carbon Dioxide 26 (23-29) mEq/L BUN 9 (6-20) mg/dL Creatinine 0.82 (0.60-1.20) mg/dL Glucose 131 H (70-105) mg/dL Calcium 9.4 (8.6-10.3) mg/dL Adrenal panel 03/13/19 Range/Units 03:52 Sodium 138 (136-145) mEq/L Potassium 4.6 (3.5-5.1) mEq/L Chloride 105 (98-107) mEq/L Carbon Dioxide 26 (23-29) mEq/L BUN 9 (6-20) mg/dL Creatinine 0.82 (0.60-1.20) mg/dL Glucose 131 H (70-105) mg/dL Calcium 9.4 (8.6-10.3) mg/dL Total Bilirubin 3.2 H (0.3-1.0) mg/dL AST 411 H (13-39) Units/L ALT 466 H (7-52) Units/L Alkaline Phosphatase 93 (34-104) Units/L Albumin 3.9 (3.5-5.7) g/dL - VTE Reasons for not Prescribing Prophylaxis: Treatment not Indicated - Low risk for VTE Consult Discharge Plan - Plan Instructions: Laparoscopic Cholecystectomy (DC) Additional Instructions: General Surgical Discharge Instructions 1. No pushing, pulling, or lifting greater than 15 lbs for 2 weeks. 2. You may shower beginning today, but no tub baths, soaking, or swimming for 2 weeks. 3. You may resume driving when you are off narcotics and are safe to react in a car. 4. Take ibuprofen every 8 hours for discomfort. If this does not relieve discomfort, you may take the as needed Percocet. Take narcotics as directed. Do not take more narcotics then directed and do not share your narcotics with any other person. Do not drink alcohol while on narcotics. 5. Take stool softeners (Colace) or a water based laxative (Miralax) while taking narcotics. You may hold for loose stools. 6. Report any fevers greater than 100.5F, increase abdominal discomfort, drainage that looks like pus, increased redness or pain at the surgical site, or any vomiting. 7. Report any pain in the calves, shortness of breath, or rapid heartbeat. 8. Follow-up in the office as directed. 9. If you were prescribed antibiotics, do not stop them without talking to your provider. Referrals: Cristhian An MD [Partnered Physician] - 04/06/19 8:30 am NONE,PCP [Primary Care Provider] -
[2019-03-14] MEDS: Ampicillin/Sulbactam 3,000 MG in 0.9 % Sodium Chloride Mini Bag 100 ML IVPB SCH ×2 (02:15→07:35)
[2019-03-14 02:54] LABS: Basophils % 0.2 %; Hematocrit 39.1 % (35.3-44.9); Immature Granulocytes % 0.4 % (0-4); Lymphocytes # 0.7 K/mcL (0.6-4.6); Lymphocytes % 6.1 %; Mean Corpuscular HGB Conc 32.7 g/dL (31.6-35.5); Mean Corpuscular Hemoglobin 29.4 pg (28.0-33.3); Mean Corpuscular Volume 89.9 fL (83.0-100.0); Mean Platelet Volume 13.1 fL (9.4-12.4); Monocytes # 0.6 K/mcL (0.0-1.3); Monocytes % 4.9 %; Neutrophils # 10.2 K/mcL (1.6-8.9); Platelet Count 151 K/mcL (140-400); Red Blood Count 4.35 M/mcL (3.82-4.97); Red Cell Distribution Width 13.3 % (11.5-14.5); Segmented Neutrophils % 88.4 %; White Blood Count 11.5 K/mcL (4.3-11.1)
[2019-03-14 02:55] LABS: Hemoglobin 12.8 g/dL (11.5-15.4)
[2019-03-14 03:13] LABS: Alanine Aminotransferase 428 Units/L (7-52); Albumin 3.6 g/dL (3.5-5.7); Albumin/Globulin Ratio 1.6 (1.1-2.2); Alkaline Phosphatase 79 Units/L (34-104); Aspartate Amino Transferase 230 Units/L (13-39); BUN/Creatinine Ratio 11 (6-26); Bilirubin,Total 1.8 mg/dL (0.3-1.0); Blood Urea Nitrogen 8 mg/dL (6-20); Calcium 8.7 mg/dL (8.6-10.3); Carbon Dioxide 27 mEq/L (23-29); Chloride 105 mEq/L (98-107); Globulin 2.3 g/dL (2.4-3.5); Glucose 129 mg/dL (70-105); Osmolality,Calculated 288 (280-300); Potassium 4.2 mEq/L (3.5-5.1); Sodium 139 mEq/L (136-145); Total Protein 5.9 g/dL (6.4-8.9); eGFR For African Americans > 60 (> 60); eGFR For Non-African Americans > 60 (> 60)
[2019-03-14 06:44] VITALS: BP 119/65
[2019-03-14 07:27] LABS: Bilirubin,Direct 0.6 mg/dL (0.0-0.2); Bilirubin,Indirect 0.9 mg/dL (0.0-1.2); Bilirubin,Total 1.5 mg/dL (0.3-1.0)
--- NOTE | 2019-03-14 07:32 | Discharge Summary ---
Orders not resulted at time of discharge: Pending orders 03/12/19 08:14 ECG 12 lead ECG [ECG] Stat 03/12/19 22:05 Surgical Pathology [PTH] Routine Date of Encounter: 03/14/19 Time of Encounter: 07:32 - Discharge Diagnosis (1) Choledocholithiasis Priority: Primary Status: Resolved General Surgery Exam Initial Vital Signs Temp Pulse Resp BP Pulse Ox 98 F 59 20 132/71 94 03/12/19 08:07 03/12/19 08:07 03/12/19 08:07 03/12/19 08:07 03/12/19 08:07 - General physical appearance well nourished, no distress, moderate pain - Neck trachea midline - Respiratory normal expansion, normal respiratory effort, clear to auscultation - Cardiovascular Cardiovascular exam: Present: RRR - Abdomen Abdomen general surgery: Present: bowel sounds present, soft, tender (Specter postoperative; she reports shoulder soreness consistent with postoperative air) - Incision Incision: Present: clean and dry, intact - Neurologic Present: CN 2-12 grossly intact, normal coordination, normal sensation - Musculoskeletal Present: normal gait, normal posture - Psychiatric Psychiatric general surgery: Present: appropriate, oriented to person, oriented to place, oriented to time, speech is normal, memory intact - Hospital Course Hospital course: Ms. Belle is a 24 year old female who presented on 03/12/2019 with choledocholithiasis. She was taken to the operating room where she underwent a laparoscopic cholecystectomy with intraoperative cholangiogram noted no filling of the duodenum. She underwent ERCP on 03/13/2019 and a biliary stent placement in the CBD. Of note per the floor oh report, there is an additional stent in the pancreatic duct which could be external to the patient. Her post ERCP labs revealed a normal lipase as well as downtrending bilirubin and liver functions. She is ambulating and voiding without difficulty, tolerating a diet without nausea or vomiting, vital signs are stable, and she is afebrile. We will begin discharge planning to home with a follow-up in the office in approximately 2 weeks. She will need to follow-up with gastroenterology in approximately 2 to 3 weeks to schedule stent removal. - Time Spent with Patient Total time spent providing and/or coordinating discharge services: - Discharge Medications Prescriptions: New Docusate Sodium [Colace] 100 mg PO BID PRN #30 capsule PRN Reason: Contstipation Ibuprofen 800 mg PO Q8H PRN #30 tablet PRN Reason: Postsurgical pain OxyCODONE/APAP 5/325 [Percocet 5/325 MG] 1 each PO Q6HR PRN 7 Days #28 tablet PRN Reason: Pain Ondansetron ODT [Zofran ODT] 4 mg SL Q4HR PRN #15 tab.rapdis PRN Reason: Postsurgical nausea Home Medications: Docusate Sodium [Colace] 100 mg PO BID PRN #30 capsule 03/14/19 [Rx] Ibuprofen 800 mg PO Q8H PRN #30 tablet 03/14/19 [Rx] Ondansetron ODT [Zofran ODT] 4 mg SL Q4HR PRN #15 tab.rapdis 03/14/19 [Rx] OxyCODONE/APAP 5/325 [Percocet 5/325 MG] 1 each PO Q6HR PRN 7 Days #28 tablet 03/14/19 [Rx] Allergies/Adverse Reactions: Allergy/AdvReac Type Severity Reaction Status Date / Time No Known Allergies Allergy Verified 03/13/19 15:31 Date of admission: 03/12/19 13:17 Primary care physician: PCP NONE Consults: 03/12/19 23:12 Consult to Gastroenterology [CONS] Routine Consulting Provider: Gastroenterology Barbara Reason for Consult: distal CBD obstruction suspect choledocholithiasis Time Notified: 22:00 Call Completed: Yes Discharging clinician: Franchesca Suazo Anticipated date of discharge: 03/14/19 Labs on day of discharge: Labs from last 24 hours 03/14/19 03/14/19 03/14/19 06:53 02:07 02:07 WBC 11.5 H RBC 4.35 Hgb 12.8 D Hct 39.1 MCV 89.9 MCH 29.4 MCHC 32.7 RDW 13.3 Plt Count 151 MPV 13.1 H Immature Gran % 0.4 Seg Neutrophils % 88.4 Lymphocytes % 6.1 Monocytes % 4.9 Eosinophils % 0.0 Basophils % 0.2 Neutrophils # 10.2 H Lymphocytes # 0.7 Monocytes # 0.6 Eosinophils # 0.0 Basophils # 0.0 Sodium 139 Potassium 4.2 Chloride 105 Carbon Dioxide 27 BUN 8 Creatinine 0.72 Est GFR ( Amer) > 60 Est GFR (Non-Af Amer) > 60 BUN/Creatinine Ratio 11 Glucose 129 H Calculated Osmolality 288 Calcium 8.7 Total Bilirubin 1.5 H 1.8 H Direct Bilirubin 0.6 H Indirect Bilirubin 0.9 AST 230 H ALT 428 H Alkaline Phosphatase 79 Serum Total Protein 5.9 L Albumin 3.6 Globulin 2.3 L Albumin/Globulin Ratio 1.6 Amylase 31 Lipase 26 - Impressions ITS Impressions Gallbladder Ultrasound 03/12/19 10:09 IMPRESSION: 1. Cholelithiasis with dilated common bile duct likely secondary to choledocholithiasis. D/ / Higinio Jorge MD / iHginio Jorge MD Interpreting Provider: Higinio Jorge MD Cholangiogram,Operative 03/12/19 21:25 IMPRESSION: Contrast is not visualized in the duodenum. No obvious distal common bile duct stone is appreciated. A stenosis of the common bile duct or obstruction cannot be entirely excluded. Contrast near the cystic duct and along the edge of the liver. This is concerning for possible leak. D/ / 03/12/2019 22:06:54 Chey Avendaño MD / lorena Interpreting Provider: Chey Avendaño MD Cath/Invasive Procedure 03/13/19 00:00 IMPRESSION: Intraprocedural fluoroscopic spot images as above. See separate procedure report for more information. D/ / Villa Patricia MD / Villa Patricia MD Interpreting Provider: Villa Patricia MD - Patient Status Disposition: Home, Self-Care Condition: Good Functional capacity at discharge: independent ambulation Overall status at discharge: patient is progressing back to baseline - Discharge Instructions Instructions: Laparoscopic Cholecystectomy (DC) Follow Up With: Cristhian An MD [Partnered Physician] - 04/06/19 8:30 am NONE,PCP [Primary Care Provider] - Lexx Dhaliwal MD [Partnered Physician] - (2-3 weeks) Additional Instructions: General Surgical Discharge Instructions 1. No pushing, pulling, or lifting greater than 15 lbs for 2 weeks. 2. You may shower beginning today, but no tub baths, soaking, or swimming for 2 weeks. 3. You may resume driving when you are off narcotics and are safe to react in a car. 4. Take ibuprofen every 8 hours for discomfort. If this does not relieve discomfort, you may take the as needed Percocet. Take narcotics as directed. Do not take more narcotics then directed and do not share your narcotics with any other person. Do not drink alcohol while on narcotics. 5. Take stool softeners (Colace) or a water based laxative (Miralax) while taking narcotics. You may hold for loose stools. 6. Report any fevers greater than 100.5F, increase abdominal discomfort, drainage that looks like pus, increased redness or pain at the surgical site, or any vomiting. 7. Report any pain in the calves, shortness of breath, or rapid heartbeat. 8. Follow-up in the office as directed. 9. If you were prescribed antibiotics, do not stop them without talking to your provider. - Diet and Activity Activity: increase activity as tolerated Diet: advance to your usual diet
[2019-03-14] MEDS: *HR* OxyCODONE/APAP 5/325 TABLET PO PRN (07:34)
[2019-03-14] MEDS: Nicotine 14 MG PATCH.TD24 TD SCH (07:36)
[2019-03-14] MEDS ORDERED: Ketorolac 30 MG/ML VIAL IVP ONE (08:01)
--- NOTE | 2019-03-14 18:21 | Electrocardiograph Report ---
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
== END 2019-03-14 12:19 | disposition home or self-care (01) ==
LOC: EMEROOARM 08:00 → 3BNU 08:00
PROVIDERS: ADMIT Surgery; ATTEND Surgery